=== PATIENT | female | born 1995 | race Asian ===

== ENCOUNTER 2017-01-12 12:29 | Emergency (ER) | payer MEDICAID ==
[~2017-01-12] VITALS: Ht 165.1 cm; Wt 52.6 kg
[2017-01-12 12:29] VITALS: BP_SYST 136
--- NOTE | 2017-01-12 12:29 | NUR ---
Pt to bed 7, placed in gown for evaluation Per EMS report, pt glucose was 75. Given 1gm glucose paste, repeat accucheck 74. Pt AAOx4, skin dry, denies pain.
--- NOTE | 2017-01-12 12:29 | NUR ---
Dr. Buenrostro at bedside for evaluation
--- NOTE | 2017-01-12 13:03 | NUR ---
PT arrived to ED via ambulance with chief complaint of syncope episode. Witnessed fall occurred. No injury sustained. PT reports feeling faint. Denies N/V. No loss of consciousness. Appears in no acute distress. Will continue to monitor.
--- NOTE | 2017-01-12 13:15 | NUR ---
Phleb at bedside for blood draw using 2 pt identifier
--- NOTE | 2017-01-12 13:30 | NUR ---
PT brought lunch tray. Sitting up, eating independently.
[2017-01-12 13:31] LABS: LYMPHOCYTES # (AUTO) 1.1 K/uL (1.0-5.5); MONOCYTES # (AUTO) 0.3 K/uL (0.0-1.0); RED CELL DISTRIBUTION WIDTH 12.3 % (9.0-15.0)
[2017-01-12 13:37] LABS: BASOPHILS % (AUTO) 0.6 % (0.0-2.0); CALCIUM 9.2 mg/dL (8.4-11.0); CREATININE 0.85 mg/dL (0.55-1.30); EOSINOPHILS % (AUTO) 0.8 % (0.0-4.0); HEMATOCRIT 40.4 % (36-48); HEMOGLOBIN 13.4 g/dL (12.0-16.0); LYMPHOCYTES % (AUTO) 18.4 % (20.5-51.5); MEAN CORPUSCULAR HEMOGLOBIN 30 pg (27-31); MEAN CORPUSCULAR HGB CONC 33 % (32-36); MEAN CORPUSCULAR VOLUME 90 fL (79.0-98.0); MONOCYTES % (AUTO) 4.8 % (1.7-9.3); NEUTROPHILS # (AUTO) 4.6 K/uL (1.8-7.7); NEUTROPHILS % (AUTO) 75.4 % (40.0-70.0); PLATELET COUNT (AUTO) 155 K/uL (130-430); RED BLOOD CELL COUNT(AUTO) 4.46 MIL/uL (4.2-6.2)
[2017-01-12 13:42] LABS: ALBUMIN 4.1 g/dL (3.4-4.8); TOTAL BILIRUBIN 0.3 mg/dL (0.0-1.0); TOTAL PROTEIN, SERUM 7.3 g/dL (6.4-8.3)
[2017-01-12 14:50] VITALS: BP_SYST 129
--- NOTE | 2017-01-12 14:50 | NUR ---
Patient given written and verbal discharge instructions and verbalizes understanding. ER riki SRINIVASAN dr discussed with patient the results and treatment provided. Patient in stable condition. ID arm band removed. no Rx given. Patient educated on pain management and to follow up with PMD. Pain Scale 0/10 Opportunity for questions provided and answered.
== END 2017-01-12 14:50 | disposition home or self-care (01) ==
LOC: SED 12:29
DX: R55 Syncope and collapse (principal)
CPT/HCPCS: 36415; 80053; 81025; 85025; 93005; 99285